=== PATIENT | male | born 1965 | race Caucasian/White ===

== ENCOUNTER 2020-01-14 00:58 | Day surgery (SDC) | payer BC, SELFPAY ==
[2020-01-08 15:44] VITALS: BMI 26.2
--- NOTE | 2020-01-14 09:07 | PM.HPGS ---
History of Present Illness History of Present Illness Consent: Risks, benefits, and alternatives have been discussed and questions answered. Patient agrees to proceed with procedure. Chief complaint: Neoplasm Screening Narrative: Ridge Pugh is a 54 year old W male referred for his 1st screening colonoscopy. Patient is asymptomatic and has no family history of colon polyps or colon cancer. [facility] Past Medical History Medical History Eczema Tobacco use Family History Family History (Updated 12/24/19 @ 15:49 by Paige Loera) Mother Emphysema of lung Father Bone cancer Social History Social History (Updated 12/24/19 @ 15:49 by Paige Loera) Smoking packs per day: 1 Smoking cigarettes per day: 20.0 Smoking status: Current every day smoker Tobacco type: cigarettes Alcohol intake: current Substance use: never Substance use type: does not use Meds Home Medications and Allergies Home Medications Medication Instructions Recorded Confirmed Type nabumetone 750 mg tablet 750 mg PO BID #60 tablet 12/24/19 01/08/20 Rx Allergies Allergy/AdvReac Type Severity Reaction Status Date / Time No Known Allergies Allergy Verified 01/14/20 09:06 Exam Const: Orientation/consciousness: patient oriented x3 Resp: Auscultation: clear to auscultation bilaterally Cardio: Rate: regular rate Rhythm: regular rhythm Heart sounds: no murmurs GI: GI Palp: Yes Soft to palpation, No Tenderness to palpation present (GI), Yes No hepatosplenomegaly present and No Palpable mass present Auscultation: normal bowel sounds Neuro: General: patient oriented x3 and no focal motor deficits Extrem: General: no pedal edema Assessment and Plan Additional Plan Screening colonoscopy in average risk patient
[2020-01-14 09:08] VITALS: BP 126/73; PULSE 84; RESP 18; TEMP 36.5; O2SAT 98; BMI 25.8
[2020-01-14] MEDS: LACTATED RINGERS 1,000 ML 150 ML IV CONT (09:20)
--- NOTE | 2020-01-14 09:26 | WPDANESEPPF ---
Anes - Initial Pre Proc Eval Procedure: Operation Date: 01/14/20 10:00 Proposed Procedures p Screening Colonoscopy - Dinesh Hensley MD Date/Time: 01/14/20 09:26 Surgeon: Dinesh Hensley MD Pre Op Diagnosis: Neoplasm Screening Patient Data Age: 54 Gender: M Height: 6 ft 3 in Weight: 93.8 kg Last Vital Signs Temp 36.5 C 01/14/20 09:08 Pulse 84 01/14/20 09:08 Resp 18 01/14/20 09:08 BP 126/73 01/14/20 09:08 Pulse Ox 98 01/14/20 09:08 Allergies Allergy/AdvReac Type Severity Reaction Status Date / Time No Known Allergies Allergy Verified 01/14/20 09:06 Home Medications Medication Instructions Recorded Confirmed Type nabumetone 750 mg tablet 750 mg PO BID #60 tablet 12/24/19 01/08/20 Rx Patient hx anesthesia problems: none Family hx anesthesia problems: none PMFSH Past Medical History Medical History Eczema Tobacco use Family History Family History Mother Emphysema of lung Father Bone cancer Social History Social History Smoking packs per day: 1 Smoking cigarettes per day: 20.0 Smoking status: Current every day smoker Tobacco type: cigarettes Alcohol intake: current Substance use: never Substance use type: does not use Anes - Eval Final PreProcedure Day of Procedure 01/14/20 09:26 Patient weight: overweight Heart: regular rate and rhythm Lungs: clear to auscultation Airway: Mallampati scale class II Neurological: alert and oriented Last oral intake: >/= 8 hours ASA classification: II Emergent: no Anesthetic plan: proceed Anesthesia type and monitoring: general GIVS and standard monitoring Informed Consent: The patient's anesthetic plan and its attendant risks and benefits were discussed with the patient/family/POA. Questions were solicited and answers provided to the satisfaction of the patient/family/POA.
[2020-01-14] MEDS: SIMETHICONE ORAL SUSPENSION 20 MG/0.3 ML 30 ML BOTTLE 0.6 ML IRRIGATION (10:18)
[2020-01-14 10:32] VITALS: BP 98/65; PULSE 71; RESP 21; O2SAT 94
[2020-01-14 10:42] VITALS: BP 100/67; PULSE 70; RESP 20; O2SAT 95
[2020-01-14 10:52] VITALS: BP 107/59; PULSE 65; RESP 18; O2SAT 96
== END 2020-01-14 11:10 | disposition home or self-care (01) ==
PROVIDERS: PCP Family Medicine; Visit Provider Internal Medicine Gastroenterology
PROC: 0DJD8ZZ Inspection of Lower Intestinal Tract, Via Natural or Artificial Opening Endoscopic (ICD-10-PCS; CPT 45378; principal; 2020-01-14 10:00)
DX: Z12.11 Encounter for screening for malignant neoplasm of colon (principal); K63.5 Polyp of colon; K64.8 Other hemorrhoids; L30.9 Dermatitis, unspecified; F17.210 Nicotine dependence, cigarettes, uncomplicated
CPT/HCPCS: 45385; 88305; J2001; J2704; J7120

== ENCOUNTER 2021-02-25 16:23 | Outpatient (CLI) | payer BC, SELFPAY ==
--- NOTE | ~2021-02-25 | XR_ITS ---
EXAMINATION: XR knee RT 3V DATE: 02/25/2021 16:50 INDICATION: Right knee pain TECHNIQUE: Three views of the right knee were obtained. COMPARISON: None. FINDINGS: Alignment is normal. No fracture or osteochondral lesion. There is tricompartmental osteoar thritis, moderate in the medial and patellofemoral compartments. There is a small knee joint effusion . Soft tissues are unremarkable. IMPRESSION: 1. Moderate osteoarthritis without acute osseous abnormality. Reviewed, dictated and finalized at location A.
--- NOTE | ~2021-02-25 | XR_ITS ---
EXAMINATION: XR knee LT 3V DATE: 02/25/2021 16:50 INDICATION: Left knee pain TECHNIQUE: Three views of the left knee were obtained. COMPARISON: None. FINDINGS: Alignment is normal. No fracture or osteochondral lesion. There is mild tricompartmental os teoarthritis characterized by tiny marginal osteophytes. No joint effusion/synovitis. Soft tissues a re unremarkable. IMPRESSION: 1. No acute osseous abnormality. Reviewed, dictated and finalized at location A.
== END 2021-02-25 16:24 | disposition home or self-care (01) ==
LOC: ANHIMG 16:30
PROVIDERS: PCP Family Medicine; Visit Provider Nurse Practitioner Family
DX: M17.0 Bilateral primary osteoarthritis of knee (principal); M79.89 Other specified soft tissue disorders; M25.461 Effusion, right knee
CPT/HCPCS: 73562

== ENCOUNTER 2023-02-14 01:10 | Day surgery (SDC) | payer BC, SELFPAY ==
[2023-01-31 15:25] VITALS: BMI 27.3
--- NOTE | 2023-02-11 13:42 | PM.HPGS ---
History of Present Illness History of Present Illness Consent: Risks, benefits, and alternatives have been discussed and questions answered. Patient agrees to proceed with procedure. Chief complaint: hx colon polyps Narrative: Ridge Pugh is a 57 year old male Referred colon cancer screening. Three years ago he had 2 sessile serrated adenomas removed. Review of Systems Review of Systems: All systems reviewed & are unremarkable except as noted in HPI and below PMFSH Past Medical History Medical History BMI 26.0-26.9,adult Eczema Tobacco use Surgical History Surgical History Hx of tooth extraction Family History Family History Mother Emphysema of lung Father Bone cancer Sibling No problems noted. 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 Gender identity (if verbalized by the patient): Male Spiritual care concerns: No Meds Home Medications and Allergies Home Medications Medication Instructions Recorded Confirmed Type clobetasol 0.05 % topical cream 1 applic topical DAILY #30 grams 03/03/22 01/31/23 Rx methylprednisolone 4 mg tablets in See Rx Instructions PO PER PKG DIR 03/03/22 01/31/23 Rx a dose pack (Medrol (Mk)) #21 ea Allergies Allergy/AdvReac Type Severity Reaction Status Date / Time No Known Allergies Allergy Verified 02/14/23 06:16 Exam Resp: Auscultation: clear to auscultation bilaterally Cardio: Rate: regular rate Rhythm: regular rhythm GI: GI Palp: Yes Soft to palpation and No Tenderness to palpation present (GI) Assessment and Plan Assessment and plan (1) Colon cancer screening: Code(s): Z12.11 - Encounter for screening for malignant neoplasm of colon Status: Acute Assessment and Plan: Colonoscopy with possible biopsy or polypectomy or cautery or injection of substances.
[2023-02-14 06:18] VITALS: BP 125/78; PULSE 87; RESP 20; TEMP 36.6; O2SAT 98
[2023-02-14] MEDS: LACTATED RINGERS 1,000 ML 150 ML IV CONT (06:24)
--- NOTE | 2023-02-14 07:08 | P.PNAN_ITS ---
Anes - Initial Pre Proc Eval Procedure: Operation Date: 02/14/23 07:30 Proposed Procedures p Colonoscopy - Blayne Treviño MD Date/Time: 02/14/23 07:08 Surgeon: Blayne Treviño MD Pre Op Diagnosis: hx colon polyps Patient Data Age: 57 Gender: M Height: 1.85 m Weight: 91.4 kg Last Vital Signs Temp 36.6 C 02/14/23 06:18 Pulse 87 02/14/23 06:18 Resp 20 02/14/23 06:18 BP 125/78 02/14/23 06:18 Pulse Ox 98 02/14/23 06:18 O2 Del Method Room Air 02/14/23 06:18 Allergies Allergy/AdvReac Type Severity Reaction Status Date / Time No Known Allergies Allergy Verified 02/14/23 06:16 Home Medications Medication Instructions Recorded Confirmed Type clobetasol 0.05 % topical cream 1 applic topical DAILY #30 grams 03/03/22 01/31/23 Rx methylprednisolone 4 mg tablets in See Rx Instructions PO PER PKG DIR 03/03/22 01/31/23 Rx a dose pack (Medrol (Mk)) #21 ea Patient hx anesthesia problems: none Family hx anesthesia problems: none Results Review: All pre-operative results and documents have been reviewed as part of the pre- operative evaluation. [facility] Past Medical History Medical History BMI 26.0-26.9,adult Eczema Tobacco use Surgical History Surgical History Hx of tooth extraction Family History Family History Mother Emphysema of lung Father Bone cancer Sibling No problems noted. 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 Informed Consent: The patient's anesthetic plan and its attendant risks and benefits were discussed with the patient/family/POA. Questions were solicited and answers provided to the satisfaction of the patient/family/POA.
[2023-02-14 07:52] VITALS: BP 95/67; PULSE 68; RESP 20; O2SAT 98
[2023-02-14 08:02] VITALS: BP 113/68; PULSE 68; RESP 20; O2SAT 98
[2023-02-14 08:12] VITALS: BP 120/70; PULSE 77; RESP 20; O2SAT 98
== END 2023-02-14 08:15 | disposition home or self-care (01) ==
PROVIDERS: PCP Nurse Practitioner Family; Visit Provider Internal Medicine Gastroenterology
PROC: 0DJD8ZZ Inspection of Lower Intestinal Tract, Via Natural or Artificial Opening Endoscopic (ICD-10-PCS; CPT 45378; principal; 2023-02-14 07:30)
DX: Z12.11 Encounter for screening for malignant neoplasm of colon (principal); K57.30 Diverticulosis of large intestine without perforation or abscess without bleeding; K63.5 Polyp of colon; F17.210 Nicotine dependence, cigarettes, uncomplicated
CPT/HCPCS: 45380; 88305; J2704; J7120

== ENCOUNTER 2024-01-12 16:04 | Emergency (ER) | payer BC, SELFPAY ==
--- NOTE | ~2024-01-12 | CT_ITS ---
EXAMINATION: CT soft tissue neck w con DATE: 01/12/2024 17:59 INDICATION: Left lower jaw swelling and pain. TECHNIQUE: Computed tomography (CT) of the neck was performed with 75 mL Omnipaque-350 intravenous co ntrast. Automated exposure control and iterative reconstruction technique were employed. The dose-patricia gth product was 465.77 mGy-cm. COMPARISON: None FINDINGS: There is mucosal thickening in the paranasal sinuses. There is a carious lesion of tooth 18 with periapical lucencies with breech of the lingual cortex of the alveolar process. There is phlegm on and a 3.4 x 1.2 cm abscess around the mandible in this area. There are no pathologically enlarged lymph nodes. There is an 8 mm nodule in right thyroid lobe, likely not clinically significant. There is severe cervical spondylosis. IMPRESSION: 1. Carious lesion of tooth 18 with periapical lucencies and breech of the lingual cortex of the alveo lar process with adjacent abscess. Reviewed, dictated and finalized at location E. FILLER IMPRESSION: 1. Carious lesion of tooth 18 with periapical lucencies and breech of the lingu al cortex of the alveolar process with adjacent abscess.
[2024-01-12 16:06] VITALS: BP 179/78; PULSE 99; RESP 20; TEMP 36.2; O2SAT 100
--- NOTE | 2024-01-12 17:29 | ED.DENTAL ---
HPI - Dental/Oral General Chief complaint: Dental/Oral <ABRAHAM Hernandez Last Filed: 01/12/24 20:05> Stated complaint: tooth abscess <ABRAHAM Hernandez Last Filed: 01/12/24 20:05> Time Seen by Provider: 01/12/24 16:43 <ABRAHAM Hernandez Last Filed: 01/12/24 20:05> Source: patient <ABRAHAM Hernandez Last Filed: 01/12/24 20:05> Mode of arrival: ambulatory <ABRAHAM Hernandez Filed: 01/12/24 20:05> Limitations: no limitations <ABRAHAM Hernandez Filed: 01/12/24 20:05> History of Present Illness HPI Narrative: Patient is a 58 y/o male who presents to the ED with c/o pain and swelling to L lower jaw/teeth. Patient reports he has been dealing with infection in his right lower teeth for the last 1 month. States he has been told he needs to have teeth # 17-18 removed. He has been on 2 separate courses of antibiotics, amoxicillin and Augmentin. He is scheduled to see an oral surgeon next , but reports having increased pain and swelling in his left lower jaw over the last 1 week. Concerned for abscess. He has been taking ibuprofen with some improvement of the pain. Denies difficulty breathing or swallowing. Denies nausea or vomiting. Denies drainage from tooth. Denies fever. <ABRAHAM Hernandez Last Filed: 01/12/24 20:05> Related Data Allergies/adverse reactions: Allergies Allergy/AdvReac Type Severity Reaction Status Date / Time No Known Allergies Allergy Verified 01/12/24 16:42 <ABRAHAM Hernandez Last Filed: 01/12/24 20:05> Review of Systems Review of Systems: CONSTITUTIONAL: Denies fever, chills, or sweats. ENT: See HPI. RESPIRATORY: Denies dyspnea. GASTROINTESTINAL: Denies abdominal pain, nausea, vomiting. <ABRAHAM Hernandez Last Filed: 01/12/24 20:05> All systems reviewed & are unremarkable except as noted in HPI and below <Irina Buckley PA-C - Last Filed: 01/12/24 20:05> PMFSH Past Medical History Medical History: Medical History BMI 26.0-26.9,adult Eczema Tobacco use <Irina Buckley PA-C - Last Filed: 01/12/24 20:05> Surgical History Surgical History: Surgical History Hx of tooth extraction <Irina Buckley PA-C - Last Filed: 01/12/24 20:05> Family History Family History: Family History Mother Emphysema of lung Father Bone cancer Sibling No problems noted. <Irina Buckley PA-C - Last Filed: 01/12/24 20:05> Social History Social History: Social History Smoking packs per day: 1 Smoking cigarettes per day: 20.0 Years smoked: 37 Smoking pack-years: 37.00 Smoking status: Current every day smoker Tobacco type: cigarettes Second hand tobacco smoke exposure: Yes Alcohol intake: never Substance use: never Substance use type: does not use Lack of Transportation: No Lack of Food: Never True Current Housing: I Have Housing Concerned About Future Housing: No Difficulty Paying Gas/Electric Bills: No Difficulty Paying for Meds: No Currently Unemployed: No Education: Trade/Vocational Certificate Difficulty w/ Childcare or Family Care: No Living arrangements: with family Occupation/Education: occupation 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 HEAD: Normocephalic, atraumatic. ENT: No stridor or trismus. Diffuse dental decay. Scattered dental caries. Tenderness to palpation along the left
[2024-01-12 17:32] LABS: Basophils Absolute Auto 0.1 K/mm3 (0.0-0.1); Basophils Percent Auto 0.6 % (0.2-1.2); Eosinophils Absolute Auto 0.2 K/mm3 (0-0.3); Eosinophils Percent Auto 1.6 % (0-4.4); Hematocrit 46.1 % (42.0-52.0); Immature Granulocyte Absolute 0.04 K/mm3 (0.00-0.031); Immature Granulocyte Percent A 0.3 % (0-0.5); Lymphocytes Absolute Auto 2.39 K/mm3 (0.9-3.2); Lymphocytes Percent Auto 20.6 % (18.3-44.2); Mean Corpuscular HGB Conc 34.7 g/dl (32-36); Mean Corpuscular Hemoglobin 33.8 pg (26-34); Mean Corpuscular Volume 97.5 fl (80-100); Mean Platelet Volume 8.5 fl (7.4-10.4); Monocytes Absolute Auto 0.9 K/mm3 (0.1-0.6); Monocytes Percent Auto 7.8 % (2.6-8.5); Neutrophils Percent Auto 69.1 % (45.5-73.1); Platelet Count Result 199 k/mm3 (150-375); Red Blood Count 4.73 M/mm3 (4.6-6.20); Red Cell Distribution Width 11.9 % (11.5-14.5); White Blood Count 11.6 K/mm3 (4.5-10.0)
[2024-01-12 17:41] LABS: Anion Gap 7 mmol/L (8-16); Blood Urea Nitrogen 23 mg/dL (9-20); Calcium 9.4 mg/dL (8.4-10.2); Carbon Dioxide 28 mmol/L (22-30); Chloride 104 mmol/L (98-107); Estimated CRCL calculation 92 ml/min; Estimated Glomerular Filt Rate > 60; Glucose 93 mg/dL (65-110); Potassium 3.6 mmol/L (3.4-5.0); Sodium 139 mmol/L (137-145)
[2024-01-12 18:42] VITALS: BP 146/93; PULSE 84; RESP 18; O2SAT 97
[2024-01-12] MEDS: AMPICILLIN SULB 3 GM/NS 100 ML 3 GM/100 ML VIAL IVPB (19:44)
--- NOTE | 2024-01-12 19:55 | PC.NURSE ---
Pt offered ambulance transport to [place]. Pt refused, prefers to drive POV.
[2024-01-12 20:18] VITALS: BP 139/86; PULSE 88; RESP 19; O2SAT 97
== END 2024-01-12 20:20 | disposition short-term general hospital (02) ==
PROVIDERS: Emergency Provider Physician Assistant; PCP Family Medicine
DX: K04.7 Periapical abscess without sinus (principal); K02.9 Dental caries, unspecified; D72.829 Elevated white blood cell count, unspecified; F17.210 Nicotine dependence, cigarettes, uncomplicated
CPT/HCPCS: 36415; 70491; 80048; 85025; 96365; 99284; J0295; Q9967

== ENCOUNTER 2024-06-01 07:08 | Outpatient (CLI) | payer BC, SELFPAY ==
[2024-06-01 07:55] LABS: Basophils Absolute Auto 0.1 K/mm3 (0.0-0.1); Basophils Percent Auto 1.3 % (0.2-1.2); Eosinophils Absolute Auto 0.2 K/mm3 (0-0.3); Eosinophils Percent Auto 3.2 % (0-4.4); Hematocrit 49.2 % (42.0-52.0); Hemoglobin 16.9 g/dL (14.0-18.0); Immature Granulocyte Absolute 0.03 K/mm3 (0.00-0.031); Immature Granulocyte Percent A 0.4 % (0-0.5); Lymphocytes Absolute Auto 1.62 K/mm3 (0.9-3.2); Lymphocytes Percent Auto 22.8 % (18.3-44.2); Mean Corpuscular HGB Conc 34.3 g/dl (32-36); Mean Corpuscular Hemoglobin 33.9 pg (26-34); Mean Corpuscular Volume 98.8 fl (80-100); Mean Platelet Volume 9.2 fl (7.4-10.4); Monocytes Absolute Auto 0.5 K/mm3 (0.1-0.6); Monocytes Percent Auto 6.5 % (2.6-8.5); Neutrophils Absolute Auto 4.7 K/mm3 (1.3-6.7); Neutrophils Percent Auto 65.8 % (45.5-73.1); Platelet Count Result 190 k/mm3 (150-375); Red Blood Count 4.98 M/mm3 (4.6-6.20); Red Cell Distribution Width 12.4 % (11.5-14.5); White Blood Count 7.1 K/mm3 (4.5-10.0)
[2024-06-01 08:16] LABS: Alanine Aminotransferase 15 U/L (6-50); Albumin Level 4.7 g/dL (3.5-5.1); Alkaline Phosphatase 56 U/L (38-126); Anion Gap 5 mmol/L (4-12); Aspartate Amino Transferase 21 U/L (17-59); Bilirubin,Total 0.8 mg/dL (0.2-1.3); Blood Urea Nitrogen 17 mg/dL (9-20); Calcium 9.4 mg/dL (8.4-10.2); Carbon Dioxide 31 mmol/L (22-30); Chloride 105 mmol/L (98-107); Cholesterol 156 mg/dL (0-200); Estimated Glomerular Filt Rate > 60; Glucose 98 mg/dL (65-110); HDL Direct 51 mg/dL; Potassium 4.4 mmol/L (3.4-5.0); Sodium 141 mmol/L (137-145); Triglycerides 76 mg/dL (<150)
[2024-06-01 08:38] LABS: LDL Cholesterol Direct 89 mg/dL
== END 2024-06-01 07:09 | disposition home or self-care (01) ==
LOC: ANHLAB 07:10
PROVIDERS: PCP Family Medicine; Visit Provider Nurse Practitioner Adult Health
DX: Z13.29 Encounter for screening for other suspected endocrine disorder (principal); Z12.5 Encounter for screening for malignant neoplasm of prostate; Z13.220 Encounter for screening for lipoid disorders; Z00.00 Encounter for general adult medical examination without abnormal findings
CPT/HCPCS: 36415; 80053; 80061; 84153; 84443; 85025; G0103